=== PATIENT | female | born 1990 | race Hispanic/Latino ===

== ENCOUNTER 2018-12-19 09:54 | Emergency (ER) | payer OTHER ==
[2018-12-19 11:02] LABS: RAPID GROUP A STREP NEGATIVE (NEGATIVE)
[2018-12-19 12:13] LABS: APPEARANCE,URINE Cloudy (CLEAR); BILIRUBIN,URINE Negative (NEGATIVE); COLOR,URINE Yellow (YELLOW); GLUCOSE, URINE (UA) Negative (NEGATIVE); KETONES,URINE Negative (NEGATIVE); LEUKOCYTE ESTERASE ,URINE Trace (NEGATIVE); NITRATE,URINE Negative (NEGATIVE); OCCULT BLOOD,URINE Negative (NEGATIVE); PROTEIN,URINE Trace mg/dL (NEGATIVE)
[2018-12-19 12:25] LABS: BACTERIA,URINE Few /HPF (None Seen); RBC,URINE 0-1 /HPF (0-1)
[2018-12-19 12:26] LABS: MUCUS,URINE Few LPF (None Seen)
== END 2018-12-19 12:26 | disposition home or self-care (01) ==
LOC: EDH 09:54
DX: J02.8 Acute pharyngitis due to other specified organisms (principal); B97.89 Other viral agents as the cause of diseases classified elsewhere
CPT/HCPCS: 36415; 81001; 81025; 86308; 87804; 87880

== ENCOUNTER 2021-08-12 02:57 | Emergency (ER) | payer MEDICAID ==
[2021-08-12] MEDS ORDERED: 0.9% NACL 500ML IV.SOLN 500 ML IV ONE (04:00)
[2021-08-12] MEDS ORDERED: MECLIZINE HCL 25 MG TABLET ONE (04:04)
[2021-08-12] MEDS ORDERED: 0.9%NACL 1000ML 1,000 ML IV ONE (04:05)
[2021-08-12] MEDS ORDERED: MECLIZINE HCL 25 MG TABLET PO ONE (04:30)
[2021-08-12 06:41] VITALS: BP 103/61
== END 2021-08-12 07:09 | disposition home or self-care (01) ==
LOC: EDH 02:57
DX: R42 Dizziness and giddiness (principal); R53.1 Weakness; T40.715A Adverse effect of cannabis, initial encounter; R11.10 Vomiting, unspecified; Y92.89 Other specified places as the place of occurrence of the external cause
CPT/HCPCS: 96360; 99284; J7030